=== PATIENT | male | born 1950 | race African-American/Black ===

== ENCOUNTER 2017-08-22 12:44 | Emergency (ER) | payer MEDICARE, MEDICAID ==
[~2017-08-22] VITALS: Ht 182.9 cm; Wt 68.2 kg
[~2017-08-22 12:44] MED LIST: NPH,100V11 SQ
[2017-08-22] MEDS ORDERED: INSU100I3 SQ (12:45)
[2017-08-22 12:46] VITALS: BP 153/74
[2017-08-22 13:59] LABS: GLUCOSE,POINT OF CARE 436 MG/DL (70-110)
== END 2017-08-22 14:09 | disposition home or self-care (01) ==
LOC: EMS 12:44
DX: Z76.0 Encounter for issue of repeat prescription (principal); E11.9 Type 2 diabetes mellitus without complications; Z88.0 Allergy status to penicillin; Z79.4 Long term (current) use of insulin
CPT/HCPCS: 99282

== ENCOUNTER 2018-11-19 21:30 | Emergency (ER) | payer MEDICARE, MEDICAID ==
[~2018-11-19 21:30] MED LIST changes: +INSU100I3 SQ
== END 2018-11-19 23:10 | disposition left against medical advice (07) ==
LOC: EMS 21:31
DX: I10 Essential (primary) hypertension (principal); Z53.21 Procedure and treatment not carried out due to patient leaving prior to being seen by health care provider